=== PATIENT | female | born 1965 | race Caucasian/White ===

== ENCOUNTER → 2023-05-30 13:47 | Outpatient (REF) | payer BC, SELFPAY | LOC: RAD 13:47 | PROVIDERS: ATTENDING PHYSICIAN Nurse Practitioner Adult Health | DX: I83.90 Asymptomatic varicose veins of unspecified lower extremity (principal); M79.661 Pain in right lower leg | CPT/HCPCS: 93971 ==

== ENCOUNTER → 2023-06-17 10:51 | Outpatient (REF) | payer BC, SELFPAY | LOC: RAD 10:51 | PROVIDERS: ATTENDING PHYSICIAN Registered Nurse; FAMILY PHYSICIAN Family Medicine | DX: R07.81 Pleurodynia (principal); V18.2XXA Unspecified pedal cyclist injured in noncollision transport accident in nontraffic accident, initial encounter | CPT/HCPCS: 71101; 73030 ==

== ENCOUNTER → 2023-06-19 13:42 | Outpatient (REF) | payer BC, SELFPAY | LOC: WDC 13:42 | PROVIDERS: ATTENDING PHYSICIAN Obstetrics & Gynecology; FAMILY PHYSICIAN Family Medicine | DX: R92.2 Inconclusive mammogram (principal); Z80.3 Family history of malignant neoplasm of breast | CPT/HCPCS: 76641 ==

== ENCOUNTER → 2023-07-22 16:56 | Outpatient (REF) | payer BC, SELFPAY | LOC: RAD 16:56 | PROVIDERS: ATTENDING PHYSICIAN Registered Nurse; FAMILY PHYSICIAN Family Medicine | DX: M25.562 Pain in left knee (principal); V18.2XXD Unspecified pedal cyclist injured in noncollision transport accident in nontraffic accident, subsequent encounter | CPT/HCPCS: 73564 ==

== ENCOUNTER → 2023-07-30 06:39 | Outpatient (REF) | payer BC, SELFPAY | LOC: MRI 3T 06:39 | PROVIDERS: ATTENDING PHYSICIAN Registered Nurse; FAMILY PHYSICIAN Family Medicine | DX: M25.562 Pain in left knee (principal) | CPT/HCPCS: 73721 ==

== ENCOUNTER → 2024-04-01 12:53 | Outpatient (REF) | payer BC, SELFPAY | LOC: WDC 12:53 | PROVIDERS: ATTENDING PHYSICIAN Obstetrics & Gynecology; FAMILY PHYSICIAN Family Medicine | DX: Z12.31 Encounter for screening mammogram for malignant neoplasm of breast (principal) | CPT/HCPCS: 77063; 77067 ==

== ENCOUNTER → 2024-05-11 14:37 | Outpatient (REF) | payer BC, SELFPAY | LOC: RAD 14:37 | PROVIDERS: ATTENDING PHYSICIAN Nurse Practitioner Adult Health | DX: M25.512 Pain in left shoulder (principal) | CPT/HCPCS: 73030 ==

== ENCOUNTER → 2024-09-03 14:48 | Outpatient (REF) | payer BC, SELFPAY | LOC: WDC 14:48 | PROVIDERS: ATTENDING PHYSICIAN Obstetrics & Gynecology; FAMILY PHYSICIAN Family Medicine | DX: R92.2 Inconclusive mammogram (principal) | CPT/HCPCS: 76641 ==

== ENCOUNTER 2024-11-19 06:26 | Day surgery (SDC) | payer BC, SELFPAY | END 2024-11-19 09:05 | disposition home or self-care (01) | LOC: GI 06:26 | PROVIDERS: ATTENDING PHYSICIAN Internal Medicine Gastroenterology | DX: Z12.11 Encounter for screening for malignant neoplasm of colon (principal); K64.8 Other hemorrhoids; K57.30 Diverticulosis of large intestine without perforation or abscess without bleeding; Z86.0100 Personal history of colon polyps, unspecified | CPT/HCPCS: G0105 ==